=== PATIENT | male | born 1980 | race Caucasian/White ===

== ENCOUNTER 2019-11-23 13:50 | Emergency (ER) | payer SELFPAY ==
[2019-11-23 13:59] VITALS: BP 141/80; PULSE 109; RESP 18; TEMP 39.3; O2SAT 95; BMI 24.4
--- NOTE | 2019-11-23 14:30 | XRR_ITS ---
PROCEDURE INFORMATION: Exam: XR Chest, 1 View Exam date and time: 11/23/2019 2:31 PM Age: 39 years old Clinical indication: Fever TECHNIQUE: Imaging protocol: XR of the chest Views: 1 view. COMPARISON: No relevant prior studies available. FINDINGS: Lungs: Unremarkable. No consolidation. Pleural space: Unremarkable. No pleural effusion. No pneumothorax. Heart/Mediastinum: Unremarkable. No cardiomegaly. Bones/joints: Unremarkable. XR/XR chest 1V portable [id number] IMPRESSION: No acute findings.
--- NOTE | 2019-11-23 14:31 | W.ED.FEVER ---
HPI - Fever General: Chief Complaint: Fever Stated Complaint: multiple complaints Time Seen by Provider: 11/23/19 14:27 History of Present Illness: HPI Narrative: Patient complains about fever started 2 hours ago has had some chills denies any sickness prior to this was at work yesterday has no known exposure to COVID denies any shortness of breath diarrhea or loss of taste or smell Has not does not take any medications for fever MD elicited complaint: fever Onset (ago): hour(s) Associated symptoms: Reports no associated symptoms; Deny abdominal pain, chills, chest pain, extremity pain, headache(s), nasal congestion, nausea or vomiting Treatments prior to arrival fever: none Review of Systems Const: Reports: fever(s); Denies: chills or body aches Eyes: Denies: change in vision or blurry vision ENMT: Denies: throat pain or nasal congestion Card: Denies: chest pain or dyspnea on exertion Resp: Denies: dyspnea, productive cough or non-productive cough GI: Denies: abdominal pain, nausea or vomiting : Denies: difficulty urinating Musc: Denies: extremity pain Skin/Breast: Denies: rash Neuro: Denies: headache(s) Psych: Denies: anxiety or depression Yosvany/Lymph: Denies: easy bruising PFSH ED PFSH: Social History Smoking and tobacco status: current every day smoker Physical Exam Const: COMMON NORMALS: no acute distress, average body habitus and patient oriented x3 HENMT: COMMON NORMALS: normocephalic HEAD & SCALP: normal to inspection and normocephalic FACE & SINUS: normal facial exam Eye: COMMON NORMALS: conjunctivae normal GENERAL EYE: appearance normal, both eyes and all related structures CONJUNCTIVA: Yes conjunctivae normal Neck/C-Spine: COMMON NORMALS: no JVD Chest: COMMONS NORMALS: normal inspection of the chest Resp: COMMON NORMALS: normal respiratory effort and clear to auscultation bilaterally AUSCULTATION: clear to auscultation bilaterally Cardio: COMMON NORMALS: no JVD, regular rate and regular rhythm RATE: regular rate RHYTHM: regular rhythm GI: COMMON NORMALS: Normal to inspection, nondistended, normoactive bowel sounds present Extremity: COMMON NORMALS: normal to inspection and full ROM Neuro: COMMON NORMALS: patient oriented x3 Course Vital Signs: Vital signs: Vital Signs Temperature 102.8 F H 11/23/19 13:59 Pulse Rate 109 H 11/23/19 13:59 Respiratory Rate 18 11/23/19 13:59 Blood Pressure 141/80 11/23/19 13:59 Pulse Oximetry 95 11/23/19 13:59 Coding Level of Care Code ED Nanotechnology Technician for Cesar Holloway
[2019-11-23] MEDS: sodium chloride 0.9% 1,000 ML 999 ML IV (15:02)
[2019-11-23] MEDS: ketorolac 30 mg/mL INJ IVP (15:02)
[2019-11-23 15:21] LABS: Basophils % 0.3 %; Eosinophils % 0.1 %; Hematocrit 45.1 % (42.0-52.0); Lymphocytes # 0.5 10^3/uL (0.8-4.8); Mean Corpuscular HGB Conc 33.3 g/dL (30.0-36.0); Mean Corpuscular Hemoglobin 30.5 pg (28.0-34.0); Mean Corpuscular Volume 91.9 fL (80-94); Mean Platelet Volume 10.6 fL (7.4-10.4); Monocytes # 0.9 10^3/uL (0.2-0.9); Monocytes % 7.7 %; Neutrophils % 87.5 %; Nucleated Red Blood Cells % 0 %; Platelet Count 203 10^3/cmm (130-400); Red Blood Count 4.91 10^6/uL (4.1-5.3); Red Cell Distribution Width 12.6 % (12.1-15.1); White Blood Count 11.4 10^3/uL (4.0-10.0)
[2019-11-23 15:23] LABS: Add Urine Microscopic? YES; Bilirubin Urine Neg (NEGATIVE); Blood Urine 2+ (Negative); Glucose Urine UA Norm (Normal); Ketones Urine Negative (Negative); Leukocyte Esterase Urine Negative (Negative); Nitrate Urine Negative (Negative); Protein Urine Neg (Negative); RBC Urine 0-4 /hpf (0-2); Specific Gravity, Urine 1.015 (1.005-1.030); Urine Appearance Clear (CLEAR); Urine Color Straw (Yellow); Urobilinogen Urine Norm (Negative); WBC Urine 0-4 /hpf (0-5); pH Urine 5 (5-7)
[2019-11-23 15:24] LABS: Add Urine Culture? Yes; Bacteria Urine 2+
[2019-11-23 15:42] LABS: Alanine Aminotransferase 37 U/L (0-41); Albumin Level 4.4 g/dL (3.5-5.2); Alkaline Phosphatase 110 IU/L (40-130); Anion Gap 14.7 (5-19); Aspartate Amino Transferase 29 U/L (0-40); Blood Urea Nitrogen 10 mg/dL (6-20); Calcium 9.2 mg/dL (8.5-10.5); Carbon Dioxide 23 mmol/L (22-29); Chloride 100 mmol/L (98-107); Globulin 3.2 g/dL (1.3-4.6); Glomerular Filtration Rate 106.5 mL/min (90-130); Glucose 115 mg/dL (65-115); Osmolality Calculated 275 mOsm/kg (285-295); Potassium 3.7 mmol/L (3.5-5.1); Sodium 134 mmol/L (136-145); Total Bilirubin 0.5 mg/dL (0.15-1.2); Total Protein 7.6 g/dL (6.6-8.7)
[2019-11-23 16:00] LABS: Influenza A by IFA Negative (Negative); Influenza B by IFA Negative (Negative)
[2019-11-23] MEDS: nitrofurantoin SR (BID) 100 mg Capsule PO (16:00)
[2019-11-23 16:44] VITALS: BP 136/78; PULSE 96; RESP 18; O2SAT 99
== END 2019-11-23 16:45 | disposition home or self-care (01) ==
PROVIDERS: Emergency Provider Nurse Practitioner Family; PCP Nurse Practitioner
DX: R50.9 Fever, unspecified (principal); F17.210 Nicotine dependence, cigarettes, uncomplicated
CPT/HCPCS: 12345; 71045; 80053; 81001; 85025; 87077; 87086; 87186; 87804; 96361; 96374; 96375; 99283; J1885; J7030

== ENCOUNTER 2021-05-09 19:39 | Emergency (ER) | payer SELFPAY ==
[2021-05-09 19:48] VITALS: PULSE 113; RESP 18; TEMP 36.9; O2SAT 98; BMI 24.4
--- NOTE | 2021-05-09 20:05 | W.ED.MALEGU ---
HPI - Male Genitourinary General: Chief complaint: Urogenital-Male Stated complaint: Rt Testical Pain Time Seen by Provider: 05/09/21 20:05 History of Present Illness: HPI Narrative: 40-year-old male comes in today for complaints of pain and discomfort to the right testicular area. Patient states that about 3 weeks ago he was struck by a piece of metal in the groin while searching for scrap metal. Patient caused injury to the groin he has been taken some amoxicillin as an antibiotic. Patient reports for the last 3 days he has had worsening swelling and discomfort to the area. Patient reports that he did have some drainage from the wound at one time but the pain is worsened and has become more uncomfortable over the past couple of days. MD Complaint: testicle pain and testicle swelling Review of Systems General: Reports: 10 or more systems reviewed and unremarkable except in HPI and below : Reports: other (Scrotal swelling) [facility] ED PFSH: Social History Smoking and tobacco status: current every day smoker Physical Exam Const: COMMON NORMALS: no acute distress and patient oriented x3 GENERAL APPEARANCE: cooperative HENMT: COMMON NORMALS: normocephalic and Normal external nose present HEAD & SCALP: normal to inspection and normocephalic NOSE: Normal external nose present MOUTH: Normal oral and palatal mucosa present Eye: GENERAL EYE: appearance normal, both eyes and all related structures Neck/C-Spine: COMMON NORMALS: full ROM Chest: COMMONS NORMALS: normal inspection of the chest Resp: COMMON NORMALS: normal respiratory effort EFFORT & INSPECTION: Yes able to speak in complete sentences Cardio: COMMON NORMALS: regular rate and regular rhythm RATE: regular rate RHYTHM: regular rhythm GI: COMMON NORMALS: non-tender : COMMON NORMALS: Yes no CVA tenderness BLADDER/KIDNEY EXAM: Yes no CVA tenderness OTHER: Noticeable right testicular swelling, minimal redness and induration is noted to the scrotal sac. Back/Pelvis: COMMON NORMALS: no CVA tenderness and thoracic and lumbar spine normal to inspection Extremity: COMMON NORMALS: normal to inspection Neuro: COMMON NORMALS: patient oriented x3 and moves all extremities Psych: COMMON NORMALS: mental status grossly normal and cooperative Skin: COMMON NORMALS: no rashes or lesions noted GENERAL SKIN EXAM: no rashes or lesions noted Course Vital Signs: Vital signs: Vital Signs Temperature 98.4 F 05/09/21 19:48 Pulse Rate 113 H 05/09/21 19:48 Respiratory Rate 20 H 05/09/21 20:27 Pulse Oximetry 98 05/09/21 19:48 MDM - Male MDM Narrative: Medical decision making narrative: Patient comes in today with complaints of right testicular pain and discomfort. Patient reports swelling in the scrotal area. On exam we noted enlargement of the right testicle and tenderness of the epididymis. Patient does have a puncture wound to the area patient reported that he had stuck himself with a needle and had some purulent drainage from it. Patient stated that this is all started from an injury to his groin 2 to 3 weeks ago while he was searching for scrap metal. Differential diagnosis includes but not limited to abscess, orchitis, epididymitis, cellulitis. Laboratory values noted a 16,000 white count, CMP was unremarkable, urine was clear. Ultrasound of the groin noted epididymitis and orchitis. Patient was given 750 mg of Levaquin IV for infection. Patient was given hydrocodone and Toradol and 1 dose of morphine for pain. Patient be continued on the Levaquin daily for the next 7 days for his infection and was given some hydrocodone and ibuprofen for pain. Review of the record indicated no active narcotic prescriptions. I recommended patient follow-up with urology for repeat evaluation of therapy and concern for further treatment. Patient stated understanding. Lab Data: Labs: Lab Results 05/09/21 05/09/21 05/09/21 20:27 20:27 20:27 WBC 16.1 10^3/uL H 10 ^3/uL (4.0-10.0) RBC 5.28 10^6/uL 10^6 /uL (4.1-5.3) Hgb 15.9 g/dL g/dL (11.7-16.6) Hct 47.9 % % (42.0-52.0) MCV 90.7 fl fl (80-94) MCH 30.1 pg pg (28.0-34.0) MCHC 33.2 g/dL g/dL (30.0-36.0) RDW 12.4 % % (12.1-15.1) Plt Count 307 10^3/cmm 10^3 /cmm (130-400) MPV 10.4 fL fL (7.4-10.4) Neut % (Auto) 79.5 % % Lymph % (Auto) 9.8 % % [place] % (Auto) 8.2 % % Eos % (Auto) 1.5 % % Baso % (Auto) 0.6 % % Neut # (Auto) 12.80 10^3/uL H 1 0^3/uL (1.8-7.7) Lymph # (Auto) 1.6 10^3/uL 10^3/ uL (0.8-4.8) [place] # (Auto) 1.3 10^3/uL H 10^ 3/uL (0.2-0.9) Eos # (Auto) 0.2 10^3/uL 10^3/ uL (0.0-0.8) Baso # (Auto) 0.1 10^3/uL 10^3/ uL (0.0-0.1) Nucleated RBC % (a uto) 0 % % Nucleated RBCs # 0.0 /100WBC /100W BC Sodium 139 mmol/L mmol/L (136-145) Potassium 4.4 mmol/L mmol/L (3.5-5.1) Chloride 100 mmol/L mmol/L (98-107) Carbon Dioxide 25 mmol/L mmol/L (22-29) Anion Gap 18.4 (5-19) BUN 19 mg/dL mg/dL (6-20) Creatinine 1.1 mg/dL mg/dL (0.7-1.2) GFR Calculation 73.4 mL/min L mL/ min (90-130) Glucose 99 mg/dL mg/dL (65-115) Calculated Osmolal ity 290 mOsm/kg mOsm/ kg (285-295) Lactic Acid 1.1 mmol/L mmol/L (0.5-2.2) Calcium 9.2 mg/dL mg/dL (8.5-10.5) Total Bilirubin 0.2 mg/dL mg/dL (0.15-1.2) AST 20 U/L U/L (0-40) ALT 32 U/L U/L (0-41) Alkaline Phosphata se 124 IU/L IU/L (40-130) Total Protein 7.7 g/dL g/dL (6.6-8.7) Albumin 4.4 g/dL g/dL (3.5-5.2) Globulin 3.3 g/dL g/dL (1.3-4.6) Urine Color Urine Appearance Urine pH Ur Specific Gravit y Urine Protein Urine Glucose (UA) Urine Ketones Urine Blood Urine Nitrate Urine Bilirubin Urine Urobilinogen Ur Leukocyte Katherin ase 05/09/21 20:27 WBC RBC Hgb Hct MCV MCH MCHC RDW Plt Count MPV Neut % (Auto) Lymph % (Auto) [place] % (Auto) Eos % (Auto) Baso % (Auto) Neut # (Auto) Lymph # (Auto) [place] # (Auto) Eos # (Auto) Baso # (Auto) Nucleated RBC % (a uto) Nucleated RBCs # Sodium Potassium Chloride Carbon Dioxide Anion Gap BUN Creatinine GFR Calculation Glucose Calculated Osmolal ity Lactic Acid Calcium Total Bilirubin AST ALT Alkaline Phosphata se Total Protein Albumin Globulin Urine Color Yellow (Yellow) Urine Appearance Clear (CLEAR) Urine pH 5 (5-7) Ur Specific Gravit y 1.025 (1.005-1.030) Urine Protein Neg (Negative) Urine Glucose (UA) Norm (Normal) Urine Ketones Negative (Negative) Urine Blood Neg (Negative) Urine Nitrate Negative (Negative) Urine Bilirubin Neg (Negative) Urine Urobilinogen Norm mg/dL mg/dL (Negative) Ur Leukocyte Katherin ase Negative (Negative) Discharge Plan Discharge Patient Disposition: Home Clinical Impression: Orchitis and epididymitis Condition: Stable Prescriptions: New levofloxacin 500 mg tablet 500 mg PO DAILY 10 Days RF: 0 hydrocodone-acetaminophen 5-325 mg tablet 1 tab PO Q6H PRN (Reason: pain (scale score 7-10)) Qty: 7 RF: 0 ibuprofen 800 mg tablet 800 mg PO TID PRN (Reason: pain) Qty: 20 RF: 0 No Action triamcinolone acetonide 0.1 % cream 1 applic TOPICAL BID Qty: 80 RF: 1 Discharge Orders: Discharge ED (Routine); Ordered 05/09/21 Ordered By: Giovani Goodwin Referrals: Garland Barajas FNP [Primary Care Provider] - Discharge Diet: Usual diet Discharge Activity: Increase activity as tolerated Patient Instructions: Epididymo-Orchitis (ED), Opioid Safety Activity Restrictions/Additional Instructions: Take medications as directed. You can follow-up with [facility] pharmacy in the morning and have prescriptions charged to ER bill to continue treatment of infection. Drink plenty of water with medication. Follow-up with primary care or urologist for further treatment. Return to the ER for worsening symptoms or new concerns. Coding Level of Care Code ED Customer Service Sales Associate for Cesar Holloway Exam Comprehensive
--- NOTE | 2021-05-09 20:12 | USR_ITS ---
PROCEDURE INFORMATION: Exam: US Scrotum Exam date and time: 05/09/2021 8:12 PM Age: 40 years old Clinical indication: Scrotum pain; Additional info: Orchitis Puncture wound to the right scrotum. TECHNIQUE: Imaging protocol: Real-time ultrasound of the scrotum and contents with color Doppler and image documentation. COMPARISON: No relevant prior studies available. FINDINGS: Right testicle: Marked hyperemia in the enlarged right testicle consistent with prominent right orchitis. 5.0 x 3.1 x 3.6 cm right testicle. Left testicle: 3.5 x 2.7 x 2.9 cm left testicle. Epididymides: Marked hyperemia within enlarged right epididymis consistent with significant epididymitis. Scrotum: Normal. US/US scrotum [id number] IMPRESSION: 1. Marked hyperemia in the enlarged right testicle consistent with prominent right orchitis. 2. Marked hyperemia within enlarged right epididymis consistent with significant epididymitis. 3. Normal appearing left testicle and epididymis with no testicular torsion 4. Prominent edema in the right scrotum consistent with cellulitis. Radiation Dose CTDIVOL = (mGy): DLP = (mGy-cm)
[2021-05-09 20:27] VITALS: RESP 20
[2021-05-09] MEDS: morphine 4 mg/mL SDV 1 mL IVP (20:27)
[2021-05-09] MEDS: levofloxacin-dextrose 5 % 750 MG/150 ML PREMIX 100 MG IV (20:30)
[2021-05-09 20:36] LABS: Basophils # 0.1 10^3/uL (0.0-0.1); Basophils % 0.6 %; Eosinophils # 0.2 10^3/uL (0.0-0.8); Eosinophils % 1.5 %; Hematocrit 47.9 % (42.0-52.0); Hemoglobin 15.9 g/dL (11.7-16.6); Lymphocytes # 1.6 10^3/uL (0.8-4.8); Lymphocytes % 9.8 %; Mean Corpuscular HGB Conc 33.2 g/dL (30.0-36.0); Mean Corpuscular Hemoglobin 30.1 pg (28.0-34.0); Mean Corpuscular Volume 90.7 fl (80-94); Mean Platelet Volume 10.4 fL (7.4-10.4); Monocytes # 1.3 10^3/uL (0.2-0.9); Monocytes % 8.2 %; Neutrophils % 79.5 %; Nucleated Red Blood Cells % 0 %; Platelet Count 307 10^3/cmm (130-400); Red Blood Count 5.28 10^6/uL (4.1-5.3); Red Cell Distribution Width 12.4 % (12.1-15.1); White Blood Count 16.1 10^3/uL (4.0-10.0)
[2021-05-09 20:51] LABS: Lactic Sepsis W/Reflex 1.1 mmol/L (0.5-2.2)
[2021-05-09 20:52] LABS: Alanine Aminotransferase 32 U/L (0-41); Albumin Level 4.4 g/dL (3.5-5.2); Alkaline Phosphatase 124 IU/L (40-130); Anion Gap 18.4 (5-19); Aspartate Amino Transferase 20 U/L (0-40); Blood Urea Nitrogen 19 mg/dL (6-20); Calcium 9.2 mg/dL (8.5-10.5); Carbon Dioxide 25 mmol/L (22-29); Chloride 100 mmol/L (98-107); Globulin 3.3 g/dL (1.3-4.6); Glomerular Filtration Rate 73.4 mL/min (90-130); Glucose 99 mg/dL (65-115); Osmolality Calculated 290 mOsm/kg (285-295); Potassium 4.4 mmol/L (3.5-5.1); Sodium 139 mmol/L (136-145); Total Bilirubin 0.2 mg/dL (0.15-1.2); Total Protein 7.7 g/dL (6.6-8.7)
[2021-05-09 21:29] LABS: Add Urine Microscopic? NO; Charge for UA Resulting for Rev
[2021-05-09 21:36] LABS: Bilirubin Urine Neg (Negative); Blood Urine Neg (Negative); Glucose Urine UA Norm (Normal); Ketones Urine Negative (Negative); Leukocyte Esterase Urine Negative (Negative); Nitrate Urine Negative (Negative); Protein Urine Neg (Negative); Specific Gravity, Urine 1.025 (1.005-1.030); Urine Appearance Clear (CLEAR); Urine Color Yellow (Yellow); Urobilinogen Urine Norm (Negative); pH Urine 5 (5-7)
[2021-05-09] MEDS: HYDROcodone-acetaminophen 10-325 mg Tablet 1 TAB PO (21:36)
[2021-05-09] MEDS: ketorolac 30 mg/mL INJ 15 MG IVP (21:36)
[2021-05-09] MEDS: cloNIDine 0.1 mg Tablet PO (22:07)
[2021-05-09 22:11] VITALS: BP 182/115; PULSE 95; RESP 18; O2SAT 97
--- NOTE | 2021-05-11 05:41 | DCPLANNER ---
caravan park and camping ground manager had message to schedule a follow up appointment for patient with Dr. Bell. caravan park and camping ground manager emailed patients information to Mata Olson and Julie in Dr. Smith office. Patients information will be printed and reviewed. Clinic will call patient with appointment information.
--- NOTE | 2021-05-12 08:22 | DCPLANNER ---
Patient has a follow up appointment scheduled for Wednesday, June 09, 2021 at 10:[address] Bell. Clinic will call patient with appointment information.
--- NOTE | 2021-06-09 16:05 | DCPLANNER ---
Patient had a follow up appointment scheduled for 06.09.[address] Bell - patient did not attend appointment.
== END 2021-05-09 22:15 | disposition home or self-care (01) ==
PROVIDERS: Emergency Provider Nurse Practitioner Family; PCP Nurse Practitioner
DX: N45.3 Epididymo-orchitis (principal); F17.210 Nicotine dependence, cigarettes, uncomplicated
CPT/HCPCS: 76870; 80053; 81003; 83605; 85025; 87040; 93976; 96365; 96375; 99283; J1885; J1956; J2270

== ENCOUNTER 2022-04-05 11:53 | Emergency (ER) | payer SELFPAY ==
[2022-04-05 11:57] VITALS: BP 165/104; PULSE 102; RESP 16; TEMP 36.6; O2SAT 98; BMI 24.4
--- NOTE | 2022-04-05 12:34 | ED_ITS ---
HPI - Male Genitourinary General: Chief complaint: Urogenital-Male Stated complaint: Testicle Pain Time Seen by Provider: 04/05/22 12:33 Source: patient Mode of arrival: ambulatory History of Present Illness: 41-year-old male who presents to the emergency room with complaints of testicular pain. He states he 2 days ago he started to have a some discomfort in the right testicle it progressively worsened and is now started to swell. He has previously had an inguinal hernia repaired on the right side when he was a child. No swelling or bulging there he denies any dysuria urgency or frequency or hematuria. He states he has had some upper respiratory cough congestion the last few days. A year ago he was seen for right testicle pain was orchitis and epididymitis. MD Complaint: testicle pain Onset (ago): day(s) (2) Duration: constant Location: right testicle and right inguinal region Radiation: right inguinal region Severity: moderate Quality: aching Relieving factors: none Exacerbating factors: palpation and movement Associated symptoms: Reports swelling; Deny discharge, dysuria, fevers/chills, hematuria, nausea, rash, urinary incont inence, urinary retention, mass or vomiting Review of Systems Const: Denies: fever(s), chills, body aches, change in appetite, fatigue or malaise ENMT: Denies: throat pain, ear or mastoid pain, nasal discharge or nasal congestion Card: Denies: chest pain, edema, dyspnea on exertion or orthopnea Resp: Denies: dyspnea, productive cough or non-productive cough GI: Denies: nausea or vomiting : Reports: genital pain, testicular pain and scrotal swelling; Denies: flank pain, difficulty urinating, dysuria, urinary frequency, urinary urgency, urinary incontinence or hematuria Skin/Breast: Denies: rash or pruritus PFS ED PFSH: Medical History (Updated 04/05/22 @ 15:00 by Jorge Alberto Dalal DO) Orchitis Social History Smoking and tobacco status: current every day smoker Physical Exam Const: COMMON NORMALS: no acute distress GENERAL APPEARANCE: cooperative and comfortable ORIENTATION/CONSCIOUSNESS: Yes awake, Yes oriented to person, Yes oriented to place and Yes oriented to time HENMT: COMMON NORMALS: normocephalic, atraumatic and hearing grossly normal bilaterally HEAD & SCALP: normocephalic and atraumatic Resp: COMMON NORMALS: normal respiratory effort, No retractions, No use of accessory muscles and clear to auscultation bilaterally AUSCULTATION: clear to auscultation bilaterally Cardio: COMMON NORMALS: regular rate, regular rhythm and No murmurs present (Cardio) RATE: regular rate RHYTHM: regular rhythm GI: COMMON NORMALS: Soft to palpation and No hepatosplenomegaly present AUSCULTATION: Yes normoactive bowel sounds PALPATION: Yes Soft to palpation, No Tenderness to palpation present (GI), No Guarding due to palpation present (GI) and Yes No hepatosplenomegaly present : TESTES: Yes testicular swelling Testicular swelling laterality: right and Yes testicular tenderness Testicular tenderness laterality: right Extremity: COMMON NORMALS: normal to inspection, capillary refill normal, no clubbing, cyanosis or edema, no calf tenderness and no pedal edema Neuro: SENSORIUM/ORIENTATION: Yes oriented to person, Yes oriented to place and Yes oriented to time Skin: COMMON NORMALS: no rashes or lesions noted GENERAL SKIN EXAM: no rashes or lesions noted Course Vital Signs: Vital signs: Vital Signs Temperature 98 F 04/05/22 11:57 Pulse Rate 94 04/05/22 14:02 Respiratory Rate 16 04/05/22 14:02 Blood Pressure 168/112 04/05/22 14:02 Pulse Oximetry 98 04/05/22 14:02 Oxygen Delivery Me thod 04/05/22 14:02 MDM - Male Medical Decision Making No evidence of inguinal hernia on exam. Large amount of swelling in right testicle appears to be a orchitis and epididymitis because he is allergic to ceftriaxone we will give gentamicin and direct observed therapy 2 g Zithromax. Discharged home on doxycycline 100 mg twice daily for 14 days. Return if is further problems. Lab Data : 04/05/22 12:30 04/05/22 12:30 Radiology Impressions Scrotum Ultrasound 04/05/22 12:34 IMPRESSION: 1. Marked acute RIGHT epididymo-orchitis. 2. Severe RIGHT epididymitis. No epididymal abscess or testicular abscess at this time. No torsion. Laboratory Results WBC 13.8 10^3/uL (4.0-10.0) H 04/05/22 12:30 RBC 5.12 10^6/uL (4.1-5.3) 04/05/22 12:30 Hgb 15.6 g/dL (11.7-16.6) 04/05/22 12: Hct 46.4 % (42.0-52.0) 04/05/22 12: MCV 90.6 fl (80-94) 04/05/22 12: MCH 30.5 pg (28.0-34.0) 04/05/22 12: MCHC 33.6 g/dL (30.0-36.0) 04/05/22 12: RDW 12.3 % (12.1-15.1) 04/05/22 12:30 Plt Count 297 10^3/cmm (130-400) 04/05/22 12: MPV 10.3 fL (7.4-10.4) 04/05/22 12: Neut % (Auto) 75.6 % 04/05/22 12: Lymph % (Auto) 12.8 % 04/05/22 12: [place] % (Auto) 9.9 % 04/05/22 12:30 Eos % (Auto) 0.9 % 04/05/22 12:30 Baso % (Auto) 0.4 % 04/05/22 12:30 Neut # (Auto) 10.43 10^3/uL (1.8-7.7) H 04/05/22 12:30 Lymph # (Auto) 1.8 10^3/uL (0.8-4.8) 04/05/22 12: [place] # (Auto) 1.4 10^3/uL (0.2-0.9) H 04/05/22 12:30 Eos # (Auto) 0.1 10^3/uL (0.0-0.8) 04/05/22 12:30 Baso # (Auto) 0.1 10^3/uL (0.0-0.1) 04/05/22 12:30 Nucleated RBC % (auto) 0 % 04/05/22 12: Nucleated RBCs # 0.0 /100WBC 04/05/22 12:30 Sodium 139 mmol/L (136-145) 04/05/22 12:30 Potassium 4.1 mmol/L (3.5-5.1) 04/05/22 12:30 Chloride 99 mmol/L (98-107) 04/05/22 12:30 Carbon Dioxide 28 mmol/L (22-29) 04/05/22 12:30 Anion Gap 16.1 (5-19) 04/05/22 12:30 BUN 11 mg/dL (6-20) 04/05/22 12:30 Creatinine 0.7 mg/dL (0.7-1.2) 04/05/22 12:30 GFR Calculation 123.1 mL/min (90-130) 04/05/22 12:30 Glucose 116 mg/dL (65-115) H 04/05/22 12:30 Calculated Osmolality 288 mOsm/kg (285-295) 04/05/22 12:30 Calcium 9.5 mg/dL (8.5-10.5) 04/05/22 12:30 Total Bilirubin 0.3 mg/dL (0.15-1.2) 04/05/22 12:30 AST 20 U/L (0-40) 04/05/22 12:30 ALT 32 U/L (0-41) 04/05/22 12:30 Alkaline Phosphatase 135 U/L (40-130) H 04/05/22 12:30 Total Protein 8.3 g/dL (6.6-8.7) 04/05/22 12:30 Albumin 4.2 g/dL (3.5-5.2) 04/05/22 12:30 Globulin 4.1 g/dL (1.3-4.6) 04/05/22 12:30 Urine Color Yellow (Yellow) 04/05/22 13:59 Urine Appearance Cloudy (CLEAR) A 04/05/22 13:59 Urine pH 6 (5-7) 04/05/22 13:59 Ur Specific [place] 1.020 (1.005-1.030) 04/05/22 13:59 Urine Protein Trace (Negative) 04/05/22 13:59 Urine Glucose (UA) Norm (Normal) 04/05/22 13:59 Urine Ketones Negative (Negative) 04/05/22 13:59 Urine Blood 2+ (Negative) H 04/05/22 13:59 Urine Nitrate Negative (Negative) 04/05/22 13:59 Urine Bilirubin Neg (Negative) 04/05/22 13:59 Urine Urobilinogen Norm mg/dL (Negative) 04/05/22 13:59 Ur Leukocyte Esterase 2+ (Negative) H 04/05/22 13:59 Urine RBC 0-4 /hpf (0-2) H 04/05/22 13:59 Urine WBC 0-4 /hpf (0-5) H 04/05/22 13:59 Ur Squamous Epith Cells 0-4 /hpf (0-5) H 04/05/22 13:59 Amorphous Sediment Not Reportable 04/05/22 13:59 Urine Bacteria 4+ /hpf (NONE) H 04/05/22 13:59 Discharge Plan Discharge Patient Disposition: Home Clinical Impression: Epididymitis, Orchitis Condition: Stable Prescriptions: New doxycycline monohydrate 100 mg capsule 100 mg PO BID 14 Days Qty: 28 0RF Discharge Orders: Discharge ED (Routine); Ordered 04/05/22 Ordered By: Jorge Alberto Dalal Discharge Diet: Usual diet Discharge Activity: Increase activity as tolerated Activity Restrictions/Additional Instructions: Follow-up with your doctor as needed. Coding Level of Care Code ED Car Seat Upholsterer for Cesar Holloway
--- NOTE | 2022-04-05 12:34 | US_ITS ---
WS: [id number] TESTICULAR ULTRASOUND HISTORY: pain/swelling COMPARISON: 05/09/2021 TECHNIQUE: Real-time and color Doppler imaging or utilized to perform a testicular ultrasound. Right testicle: 3.7 cm x 3.1 cm x 2.2 cm. Normal sized testicle but there is increased vascularity. The testicle is being displaced anteriorly by an enlarged epididymis. Normal color Doppler is present throughout. Systolic and diastolic velocities are both present. Small simple hydrocele. Right epididymis: Markedly enlarged heterogeneous epididymis. The entire epididymis is enlarged and h yperemic. Testicle is being displaced anteriorly by the epididymis. Left testicle: 4.8 cm x 3.1 cm x 3.2 cm. Normal size and echogenicity. No mass or torsion. Normal color Doppler is present throughout. Systolic and diastolic velocities are both present. No significant hydrocele. Left epididymis: Normal epididymis with no increased vascularity. US/US scrotum [id number] IMPRESSION: 1. Marked acute RIGHT epididymo-orchitis. 2. Severe RIGHT epididymitis. No epididymal abscess or testicular abscess at t his time. No torsion.
[2022-04-05 12:48] LABS: Basophils # 0.1 10^3/uL (0.0-0.1); Basophils % 0.4 %; Eosinophils # 0.1 10^3/uL (0.0-0.8); Eosinophils % 0.9 %; Hematocrit 46.4 % (42.0-52.0); Hemoglobin 15.6 g/dL (11.7-16.6); Lymphocytes # 1.8 10^3/uL (0.8-4.8); Lymphocytes % 12.8 %; Mean Corpuscular HGB Conc 33.6 g/dL (30.0-36.0); Mean Corpuscular Hemoglobin 30.5 pg (28.0-34.0); Mean Corpuscular Volume 90.6 fl (80-94); Mean Platelet Volume 10.3 fL (7.4-10.4); Monocytes # 1.4 10^3/uL (0.2-0.9); Monocytes % 9.9 %; Neutrophils # 10.43 10^3/uL (1.8-7.7); Neutrophils % 75.6 %; Nucleated Red Blood Cells % 0 %; Platelet Count 297 10^3/cmm (130-400); Red Blood Count 5.12 10^6/uL (4.1-5.3); Red Cell Distribution Width 12.3 % (12.1-15.1); White Blood Count 13.8 10^3/uL (4.0-10.0)
[2022-04-05 13:09] LABS: Alanine Aminotransferase 32 U/L (0-41); Albumin Level 4.2 g/dL (3.5-5.2); Alkaline Phosphatase 135 U/L (40-130); Anion Gap 16.1 (5-19); Aspartate Amino Transferase 20 U/L (0-40); Blood Urea Nitrogen 11 mg/dL (6-20); Calcium 9.5 mg/dL (8.5-10.5); Carbon Dioxide 28 mmol/L (22-29); Chloride 99 mmol/L (98-107); Creatinine Clr Calc Pharmacy 152.4648; Globulin 4.1 g/dL (1.3-4.6); Glomerular Filtration Rate 123.1 mL/min (90-130); Glucose 116 mg/dL (65-115); Osmolality Calculated 288 mOsm/kg (285-295); Potassium 4.1 mmol/L (3.5-5.1); Sodium 139 mmol/L (136-145); Total Bilirubin 0.3 mg/dL (0.15-1.2); Total Protein 8.3 g/dL (6.6-8.7)
--- NOTE | 2022-04-05 14:01 | PM.HP ---
Providers/Chief Complaint Chief Complaint: Testicle Pain History of Present Illness Dom Ricks is a 41 year old male Medications/Allergies Home Medications Medication Instructions Recorded Confirmed Last Taken Type No Known Home Medications 04/05/22 04/05/22 Unknown History Allergies Allergy/AdvReac Type Severity Reaction Status Date / Time cephalexin [From Keflex] Allergy ALGY-Hives Verified 08/06/20 17:26 PFSH Acute PFSH: Social History Smoking and tobacco status: current every day smoker Vitals/I&O/Wt Last Vital Signs Temp 98 F 04/05/22 11:57 Pulse 102 H 04/05/22 11:57 Resp 16 04/05/22 11:57 BP 165/104 04/05/22 11:57 Pulse Ox 98 04/05/22 11:57 O2 Del Method 04/05/22 11:57 Weight last 48 hrs Weight 81.647 kg Data : 04/05/22 12:30 04/05/22 12:30 Other Labs: Radiology Impressions Scrotum Ultrasound 04/05/22 12:34 IMPRESSION: 1. Marked acute RIGHT epididymo-orchitis. 2. Severe RIGHT epididymitis. No epididymal abscess or testicular abscess at this time. No torsion. Laboratory Results WBC 13.8 10^3/uL (4.0-10.0) H 04/05/22 12:30 RBC 5.12 10^6/uL (4.1-5.3) 04/05/22 12:30 Hgb 15.6 g/dL (11.7-16.6) 04/05/22 12:30 Hct 46.4 % (42.0-52.0) 04/05/22 12:30 MCV 90.6 fl (80-94) 04/05/22 12:30 MCH 30.5 pg (28.0-34.0) 04/05/22 12:30 MCHC 33.6 g/dL (30.0-36.0) 04/05/22 12:30 RDW 12.3 % (12.1-15.1) 04/05/22 12:30 Plt Count 297 10^3/cmm (130-400) 04/05/22 12:30 MPV 10.3 fL (7.4-10.4) 04/05/22 12: Neut % (Auto) 75.6 % 04/05/22 12: Lymph % (Auto) 12.8 % 04/05/22 12:30 [place] % (Auto) 9.9 % 04/05/22 12:30 Eos % (Auto) 0.9 % 04/05/22 12:30 Baso % (Auto) 0.4 % 04/05/22 12:30 Neut # (Auto) 10.43 10^3/uL (1.8-7.7) H 04/05/22 12:30 Lymph # (Auto) 1.8 10^3/uL (0.8-4.8) 04/05/22 12: [place] # (Auto) 1.4 10^3/uL (0.2-0.9) H 04/05/22 12:30 Eos # (Auto) 0.1 10^3/uL (0.0-0.8) 04/05/22 12: Baso # (Auto) 0.1 10^3/uL (0.0-0.1) 04/05/22 12: Nucleated RBC % (auto) 0 % 04/05/22 12: Nucleated RBCs # 0.0 /100WBC 04/05/22 12:30 Sodium 139 mmol/L (136-145) 04/05/22 12:30 Potassium 4.1 mmol/L (3.5-5.1) 04/05/22 12: Chloride 99 mmol/L (98-107) 04/05/22 12: Carbon Dioxide 28 mmol/L (22-29) 04/05/22 12:30 Anion Gap 16.1 (5-19) 04/05/22 12:30 BUN 11 mg/dL (6-20) 04/05/22 12:30 Creatinine 0.7 mg/dL (0.7-1.2) 04/05/22 12:30 GFR Calculation 123.1 mL/min (90-130) 04/05/22 12:30 Glucose 116 mg/dL (65-115) H 04/05/22 12:30 Calculated Osmolality 288 mOsm/kg (285-295) 04/05/22 12:30 Calcium 9.5 mg/dL (8.5-10.5) 04/05/22 12:30 Total Bilirubin 0.3 mg/dL (0.15-1.2) 04/05/22 12:30 AST 20 U/L (0-40) 04/05/22 12:30 ALT 32 U/L (0-41) 04/05/22 12:30 Alkaline Phosphatase 135 U/L (40-130) H 04/05/22 12:30 Total Protein 8.3 g/dL (6.6-8.7) 04/05/22 12:30 Albumin 4.2 g/dL (3.5-5.2) 04/05/22 12:30 Globulin 4.1 g/dL (1.3-4.6) 04/05/22 12:30 Coding Level of Care Code Acute Post Office Markup Clerk for Cesar Holloway
[2022-04-05 14:02] VITALS: BP 168/112; PULSE 94; RESP 16; O2SAT 98
[2022-04-05 14:23] LABS: Urine Appearance Cloudy (CLEAR); Urine Color Yellow (Yellow); pH Urine 6 (5-7)
[2022-04-05 14:24] LABS: Add Urine Microscopic? YES; Bilirubin Urine Neg (Negative); Blood Urine 2+ (Negative); Glucose Urine UA Norm (Normal); Ketones Urine Negative (Negative); Leukocyte Esterase Urine 2+ (Negative); Nitrate Urine Negative (Negative); Protein Urine Trace (Negative); RBC Urine 0-4 /hpf (0-2); Squamous Epithelial Cell Urine 0-4 /hpf (0-5); Urobilinogen Urine Norm (Negative); WBC Urine 0-4 /hpf (0-5)
[2022-04-05 14:25] LABS: Add Urine Culture? Yes; Bacteria Urine 4+ /hpf
[2022-04-05] MEDS: azithromycin 250 mg Tablet 2000 MG PO (14:56)
[2022-04-05 15:09] VITALS: BP 175/122; PULSE 107; RESP 18; O2SAT 96
== END 2022-04-05 15:08 | disposition home or self-care (01) ==
PROVIDERS: Emergency Provider Family Medicine
DX: N45.3 Epididymo-orchitis (principal)
CPT/HCPCS: 76870; 80053; 81001; 85025; 87077; 87086; 87186; 96372; 99284; J1580; Q0144

== ENCOUNTER 2023-01-11 17:15 | Emergency (ER) | payer MEDICAID, SELFPAY ==
[2023-01-11 17:39] VITALS: BP 167/100; PULSE 103; RESP 17; TEMP 36.7; O2SAT 97
--- NOTE | 2023-01-11 20:10 | XRR_ITS ---
PROCEDURE INFORMATION: Exam: XR Abdomen Exam date and time: 01/11/2023 8:19 PM Age: 42 years old Clinical indication: Pain; Other: Penis; Additional info: Fb penis TECHNIQUE: Imaging protocol: Radiologic exam of the abdomen. Views: Frontal supine view of the abdomen. 1 View. COMPARISON: CR XR chest 1V portable [id number] 11/23/2019 2:29 PM FINDINGS: Tubes, catheters and devices: Apparent tubing seen over the pelvic inlet in the region of the urinary bladder and penile region may reflect a foreign body in the urethra and urinary bladder depending on the clinical scenario. Gastrointestinal tract: Normal. No bowel dilation. Bones/joints: Unremarkable. XR/XR KUB [id number] IMPRESSION: Apparent tubing seen over the pelvic inlet in the region of the urinary bladder and penile region may reflect a foreign body in the urethra and urinary bladder depending on the clinical scenario.
--- NOTE | 2023-01-11 20:28 | W.ED.MALEGU ---
HPI - Male Genitourinary General: Chief complaint: Urogenital-Male Stated complaint: something stuck in penis Time Seen by Provider: 01/11/23 20:07 Source: patient Mode of arrival: ambulatory Limitations: no limitations History of Present Illness: 42-year-old male states that on Monday him and his significant other were having intercourse she decided to put plastic tubes up his penis he states that they have been in his penis since Monday has not been able to get them out he states he is having pain with urination. Denies any worsening through factors. Associated symptoms: Reports dysuria; Deny nausea or vomiting Review of Systems Const: Denies: fever(s), chills or body aches ENMT: Denies: throat pain or dental pain Card: Denies: chest pain Resp: Denies: dyspnea GI: Denies: abdominal pain, nausea, vomiting or diarrhea : Reports: dysuria and genital pain Musc: Denies: neck pain or back pain Skin/Breast: Denies: rash Neuro: Denies: headache(s) PFSH ED PFSH: Medical History Orchitis Social History Smoking and tobacco status: current every day smoker Physical Exam Const: COMMON NORMALS: no acute distress and patient oriented x3 HENMT: COMMON NORMALS: normocephalic and atraumatic HEAD & SCALP: normocephalic and atraumatic Eye: COMMON NORMALS: conjunctivae normal CONJUNCTIVA: Yes conjunctivae normal Neck/C-Spine: COMMON NORMALS: supple Chest: COMMONS NORMALS: normal inspection of the chest Resp: COMMON NORMALS: normal respiratory effort Cardio: COMMON NORMALS: regular rate RATE: regular rate GI: INSPECTION: Yes normal to inspection : OTHER: No foreign bodies noticed at the meatus of the penis Extremity: COMMON NORMALS: normal to inspection Neuro: COMMON NORMALS: patient oriented x3 Course Vital Signs: Vital signs: Vital Signs Temperature 98.1 F 01/11/23 17:39 Pulse Rate 103 H 01/11/23 17:39 Respiratory Rate 17 01/11/23 17:39 Blood Pressure 167/100 01/11/23 17:39 Pulse Oximetry 97 01/11/23 17:39 Oxygen Delivery Me thod Room Air 01/11/23 17:39 MDM - Male Medical Decision Making Patient presents here with a foreign body to his penis on x-ray appears to be possibly in his bladder did speak to urology at [facility] in [place] will transfer there for higher level of care as we do not have urology available here. Lab Data Radiology Impressions KUB X-Ray 01/11/23 20:10 IMPRESSION: Apparent tubing seen over the pelvic inlet in the region of the urinary bladder and penile region may reflect a foreign body in the urethra and urinary bladder depending on the clinical scenario. 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
== END 2023-01-12 01:19 | disposition short-term general hospital (02) ==
PROVIDERS: Emergency Provider Emergency Medicine
DX: T19.4XXA Foreign body in penis, initial encounter (principal); F17.200 Nicotine dependence, unspecified, uncomplicated; X58.XXXA Exposure to other specified factors, initial encounter
CPT/HCPCS: 74018; 99283